=== PATIENT | male | born 1970 | race Caucasian/White ===

== ENCOUNTER 2016-07-09 08:39 | Emergency (ER) | payer OTHER ==
[~2016-07-09] VITALS: Ht 193 cm; Wt 120.0 kg
[2016-07-09 08:43] VITALS: Ht 193 cm; Wt 120.0 kg
[2016-07-09] MEDS ORDERED: SOD CHLORIDE 0.9% 1,000 ML IV STA (08:57)
[2016-07-09] MEDS ORDERED: HYDROmorphONE 1 MG/ML SYG IV STA ×2 (08:57→09:26)
[2016-07-09] MEDS ORDERED: ONDANSETRON 4 MG INJ IV STA (08:57)
[2016-07-09] MEDS ORDERED: SULFASALAZINE 500 MG TAB PO ONE (09:30)
[2016-07-09] MEDS ORDERED: predniSONE 20 MG TAB PO ONE (09:30)
[2016-07-09] MEDS ORDERED: SOD CHLORIDE 0.9% 1,000 ML IV ONE (09:30)
[2016-07-09 09:43] LABS: ADD SCAN DIFF NO
[2016-07-09 09:46] LABS: BASOPHILS % 0.2 % (0.0-2.0); EOSINOPHILS % 0.2 % (0.0-7.0); HEMATOCRIT 45.7 % (42.0-52.0); LYMPHOCYTES # 1.5 10^3/ul (0.8-2.9); LYMPHOCYTES % 23.8 % (15.0-51.0); MEAN CORPUSCULAR HEMOGLOBIN 30.4 pg (29.0-33.0); MEAN CORPUSCULAR HGB CONC 32.8 g/dl (32.0-37.0); MEAN CORPUSCULAR VOLUME 92.5 fl (82.0-101.0); MEAN PLATELET VOLUME 9.7 fl (7.4-10.4); MONOCYTE # 0.4 10^3/ul (0.3-0.9); MONOCYTES % 6.9 % (0.0-11.0); NEUTROPHIL # 4.3 10^3/ul (1.6-7.5); NEUTROPHILS % 68.6 % (39.0-77.0); PLATELET COUNT 150 10^3/UL (140-415); RED BLOOD COUNT 4.94 10^6/ul (4.70-6.10); RED CELL DISTRIBUTION WIDTH 13.1 % (11.5-14.5); WHITE BLOOD COUNT 6.2 10^3/ul (4.8-10.8)
[2016-07-09 10:02] LABS: ALBUMIN 4.7 g/dl (3.3-4.9); ALBUMIN/GLOBULIN RATIO 1.34; CALCIUM 9.5 mg/dl (8.4-10.2); CREATININE 0.98 mg/dl (0.61-1.24); POTASSIUM 3.6 mmol/L (3.5-5.1); TOTAL PROTEIN 8.2 g/dl (6.1-8.1)
[2016-07-09 10:17] LABS: INR 0.83; PROTIME 11.4 Sec (12.2-14.2); PT RATIO 0.9
[2016-07-09] MEDS ORDERED: HYDROmorphONE 2 MG/ML SYG IV STA (10:24)
[2016-07-09] MEDS ORDERED: SOD CHLORIDE 0.9% 100 ML ONE (10:25)
[2016-07-09] MEDS ORDERED: IOHEXOL 300MG/ML 150 ML BTL ONE (10:25)
--- NOTE | 2016-07-09 11:14 | RADRPT ---
PROCEDURE: CT Abdomen and Pelvis with contrast. CLINICAL INDICATION: Abdominal pain ; crohn's disease TECHNIQUE: CT scan of the abdomen and pelvis with contrast was performed on a multidetector high-r esolution CT scanner. Coronal and sagittal reformatted images were obtained from the axial source im ages. Images were reviewed on a high-resolution PACS workstation. 80 cc of Isovue 300 iodinated cont rast was administered intravenously without reported complication. The total exam CTDI equals 17 mG y and the total exam DLP equals 1044 mGy-cm. One or more of the following dose reduction techniques were used: Automated exposure control, Adjustment of the mA and/or kV according to patient size, an d/or use of iterative reconstruction technique. COMPARISON: None. FINDINGS: The lung bases are clear. The liver, pancreas, spleen, and adrenals are grossly unremarkable. No focal pericholecystic inflammatory changes. No hydronephrosis. No obstructing renal stone. No bowel obstruction. Surgical changes to the right colon are seen suggestive of prior appendectomy. No significant retroperitoneal lymphadenopathy, ascites or evidence of pneumoperitoneum. No rim-enhancing intra-abdominal fluid collection. IMPRESSION: No acute intra-abdominal process identified. No evidence of bowel obstruction or obstructing renal stone. No intra-abdominal abscess. Surgical changes to the right colon are seen suggestive of prior appendectomy. RPTAT: AA .Liam Stacy MD, MD Date Time Electronically viewed and signed by .Liam Stacy MD, on 07/09/2016 11:13 .T/
[2016-07-09 11:22] VITALS: BP 142/80; PULSE 56; RESP 20; TEMP 98.3
[2016-07-09] MEDS ORDERED: IBUP-1542 PO (11:24)
--- NOTE | 2016-07-09 12:26 | ERD ---
ER Documentation Chief Complaint Date/Time DATE: 07/09/16 TIME: 12:04 Chief Complaint RIGHT LOWER ABDOMINAL PAIN,VOMITING,HX OF CROHNS DSE HPI 46-year-old man states he has a history of Crohn's disease complaining of right lower quadrant severe abdominal pain and a few episodes of clear nonbloody nonbilious emesis beginning this morning. He states his last attack was about a month ago. He states he used to be controlled with medications including prednisone and opioid analgesics but he ran out because of changes to his health insurance and he has not seen his primary care physician or cardiovascular tech for over a month because of these changes. He states last time in the emergency department he required 4 mg of hydromorphone to control the pain, and states he has had previous CT scans and a colonoscopy but does not recall the results. Patient denies melena or blood per rectum, no fevers or chills, no chest pain or shortness of breath. Patient is status post appendectomy many years ago. He states he is allergic to Toradol ROS All systems reviewed and are negative except as per history of present illness. Medications Home Meds Active Scripts Ibuprofen* (Ibuprofen*) 600 Mg Tablet, 600 MG PO Q8 for PAIN AND/OR INFLAMMATION , #30 TAB Prov:RADHA BEAR MD 07/09/16 Allergies Allergies: Coded Allergies: ketorolac (Verified Allergy, Intermediate, RASH, 07/09/16) PMhx/Soc Possibly Crohn's disease, history of appendectomy History of Surgery: Yes (APPY) Anesthesia Reaction: No Hx Neurological Disorder: No Hx Respiratory Disorders: No Hx Cardiac Disorders: No Hx Psychiatric Problems: No Hx Miscellaneous Medical Probl: Yes (CROHNS) Hx Alcohol Use: No Hx Substance Use: No Hx Tobacco Use: No Smoking Status: Never smoker FmHx Family History: No diabetes Physical Exam Vitals Vital Signs Date Time Temp Pulse Resp B/P Pulse Ox O2 Delivery O2 Flow Rate FiO2 07/09/16 11:22 98.3 56 20 142/80 99 07/09/16 08:43 98.3 58 20 191/86 98 Physical Exam GENERAL: Well-developed, well-nourished, moderate discomfort, afebrile HEENT: Moist mucous membranes, pink conjunctiva, no cervical spine tenderness or step-off deformities, no goiter, no jaundice or icterus, extraocular movements intact without pain. No submandibular induration, and no pharyngeal erythema NEURO: Alert and oriented 3, cranial nerves II through XII intact bilaterally, pupils equal round reactive to light, no focal deficits or facial asymmetry, sensation intact distally Strength 5/5 in upper and lower extremities bilaterally CARDIAC: Regular rate and rhythm, no murmurs rubs or gallops LUNGS: Clear bilaterally no wheezing crackles or stridor ABDOMEN: Soft nontender, no guarding, no rigidity, no rebound, no psoas sign no obturator sign. Normoactive bowel sounds SKIN: Warm and dry to touch, no abrasions, contusions, or hematomas, no lacerations, no ecchymosis, no target lesions, and without ulcers EXTREMITIES: No clubbing cyanosis or edema, calves are bilaterally symmetrical, no Homans sign, no popliteal cord sign. Distal pulses equal and bilateral PSYCH: Normal affect without agitation or irritability Result Diagram: 07/09/1615 07/09/1615 Results 24 hrs Laboratory Tests Test 07/09/16 09:15 White Blood Count 6.210^3/ul Red Blood Count 4.9410^6/ul Hemoglobin 15.0g/dl Hematocrit 45.7% Mean Corpuscular Volume 92.5fl Mean Corpuscular Hemoglobin 30.4pg Mean Corpuscular Hemoglobin Concent 32.8g/dl Red Cell Distribution Width 13.1% Platelet Count 89609^3/UL Mean Platelet Volume 9.7fl Neutrophils % 68.6% Lymphocytes % 23.8% Monocytes % 6.9% Eosinophils % 0.2% Basophils % 0.2% Nucleated Red Blood Cells % 0.0/100WBC Neutrophils # 4.310^3/ul Lymphocytes # 1.510^3/ul Monocytes # 0.410^3/ul Eosinophils # 0.010^3/ul Basophils # 0.010^3/ul Nucleated Red Blood Cells # 0.010^3/ul Prothrombin Time 11.4Sec Prothrombin Time Ratio 0.9 INR International Normalized Ratio 0.83 Sodium Level 141mmol/L Potassium Level 3.6mmol/L Chloride Level 105mmol/L Carbon Dioxide Level 28mmol/L Anion Gap 12 Blood Urea Nitrogen 10mg/dl Creatinine 0.98mg/dl Glucose Level 145mg/dl Calcium Level 9.5mg/dl Total Bilirubin 1.0mg/dl Direct Bilirubin 0.00mg/dl Indirect Bilirubin 1.0mg/dl Aspartate Amino Transf (AST/SGOT) 44IU/L Alanine Aminotransferase (ALT/SGPT) 59IU/L Alkaline Phosphatase 78IU/L Total Protein 8.2g/dl Albumin 4.7g/dl Globulin 3.50g/dl Albumin/Globulin Ratio 1.34 Lipase 88U/L Current Medications Medications (Trade) Dose Ordered Sig/Dell Route PRN Reason Start Time Stop Time Status Last Admin Dose Admin Sodium Chloride (NS) 1,000 ml @ 1,000 mls/hr Q1H STAT IV 07/09/16 08:57 07/09/16 09:56 DC 07/09/16 09:51 Hydromorphone HCl (Dilaudid) 1 mg ONCE STAT IV 07/09/16 08:57 07/09/16 08:58 DC 07/09/16 09:24 Ondansetron HCl (Zofran Inj) 4 mg ONCE STAT IV 07/09/16 08:57 07/09/16 08:58 DC 07/09/16 09:25 Prednisone (Prednisone) 60 mg ONCE ONCE PO 07/09/16 09:30 07/09/16 09:31 DC 07/09/16 10:42 Sulfasalazine 1000 mg 1,000 mg ONCE ONCE PO 07/09/16 09:30 07/09/16 09:31 DC 07/09/16 10:58 Sodium Chloride (NS) 1,000 ml @ 1,000 mls/hr Q1H ONCE IV 07/09/16 09:30 07/09/16 10:29 DC 07/09/16 09:53 Hydromorphone HCl (Dilaudid) 1 mg ONCE STAT IV 07/09/16 09:26 07/09/16 09:27 DC 07/09/16 10:07 Hydromorphone HCl (Dilaudid) 2 mg ONCE STAT IV 07/09/16 10:24 07/09/16 10:25 DC 07/09/16 10:35 Iohexol 150 ml 150 ml STK-MED ONCE .ROUTE 07/09/16 10:25 07/09/16 10:26 DC 07/09/16 11:00 Sodium Chloride (NS) 100 ml @ ud STK-MED ONCE .ROUTE 07/09/16 10:25 07/09/16 10:26 DC 07/09/16 11:00 Procedures/MDM IV line was established patient was placed on monitoring and evaluation advisor rhythm strip revealed a sinus rhythm at about 80 bpm with upright P and T waves. Patient was afebrile. I administered 1 L normal saline intravenously, hydromorphone 1 mg IV 1, and Zofran 4 mg IV, patient stated immediately after medication administration that his pain did not resolve and that he required a total of 4 mg in 2 mg doses. About half an hour after the first dose I did give another dose of hydromorphone 1 mg IV, and an hour later ministered hydromorphone 2 mg IV for a total of 4 mg. I also initially treated him with sulfasalazine 1 g p.o. and prednisone 60 mg p.o. CBC and electrolytes are normal, liver function tests are normal. I recommended and would have preferred CT scan imaging with oral contrast although patient stated he was nauseous and could not tolerate that much oral contrast, and as acute mesenteric ischemia was still on the differential diagnosis given his pain out of proportion to examination I elected to proceed with CT scan of the abdomen pelvis using IV contrast. CT scan of abdomen and pelvis with IV contrast was performed and was completely normal. There was no bowel wall thickening, intraluminal air, mesenteric stranding, or lymphadenopathy found on CT scan, which would have been likely in a patient with a long history of Crohn's experiencing an acute severely symptomatic flare. Please refer to radiologist dictation for full report. Patient's vital signs remained normal throughout his stay in the emergency department, and abdominal examination was repeated by me after my first examination and prior to discharge. His belly remained soft he had no guarding , rigidity, or rebound on my examination. And patient looks well despite initial diaphoresis complaints of pain. This patient did exhibit many aspects of drug-seeking behavior and I cautioned him about the risks of opioids both in the chronic and acute setting. I suspect many aspects of his presentation was secondary to opioid withdrawal, and recommended he follow-up with his primary care physician, cardiovascular tech, and obtain a pain specialist consultation. These evaluations and consults can be performed as an outpatient. I deferred all opioid prescriptions and medications related to Crohn's therapy to his PMD. Differential diagnoses considered, included but not limited to acute coronary syndrome, mesenteric ischemia, inflammatory bowel disease, bowel perforation, pulmonary embolism, aortic dissection, abdominal aortic aneurysm, sepsis, stroke , meningitis, encephalitis, pneumonia, appendicitis, cholecystitis, bowel obstruction, pyelonephritis, nephrolithiasis, cystitis, as well as metabolic, hematologic, and electrolyte abnormalities. As well as abscess, cellulitis, fractures, and dislocations. Patient feels much better at this time, and vital signs are normal, symptoms have improved. I did give strict instructions to return to the ED if symptoms continue or worsen, patient will otherwise follow-up with primary care physician. Patient understood instructions and agreed to plan. Departure Diagnosis: Primary Impression: Abdominal pain Abdominal location: right lower quadrant Qualified Code: R10.31 - Right lower quadrant abdominal pain Additional Impression: Withdrawal from opioids Condition: Good Patient Instructions: Abdominal Pain, Unkown Cause, (Male) RADHA BEAR MD Jul 09, 2016 12:21
== END 2016-07-09 11:45 | disposition home or self-care (01) ==
LOC: E/R 08:39
DX: R10.31 Right lower quadrant pain (principal); F11.23 Opioid dependence with withdrawal; R40.2142 Coma scale, eyes open, spontaneous, at arrival to emergency department; R40.2252 Coma scale, best verbal response, oriented, at arrival to emergency department; R40.2362 Coma scale, best motor response, obeys commands, at arrival to emergency department; R11.10 Vomiting, unspecified
CPT/HCPCS: 36415; 74177; 80053; 83690; 85025; 85610; 96361; 96374; 96375; 96376; J1170; J2405; J7030; J7512; Q9967; Z7502; Z7610

== ENCOUNTER 2016-07-11 05:55 | Observation (INO) | payer OTHER ==
[~2016-07-11] VITALS: Ht 193 cm; Wt 105.0 kg
[~2016-07-11 05:55] MED LIST: IBUP-1542 PO
[2016-07-11] MEDS ORDERED: SOD CHLORIDE 0.9% 1,000 ML IV STA (06:45)
[2016-07-11] MEDS ORDERED: ONDANSETRON 4 MG INJ IV STA (06:45)
[2016-07-11] MEDS ORDERED: HYDROmorphONE 1 MG/ML SYG IV STA ×4 (06:45→08:14)
[2016-07-11 06:52] LABS: ADD SCAN DIFF NO
[2016-07-11 06:53] LABS: BASOPHILS % 0.2 % (0.0-2.0); EOSINOPHILS % 0.6 % (0.0-7.0); HEMOGLOBIN 14.9 g/dl (14.0-18.0); LYMPHOCYTES # 1.9 10^3/ul (0.8-2.9); LYMPHOCYTES % 34.7 % (15.0-51.0); MEAN CORPUSCULAR HEMOGLOBIN 30.8 pg (29.0-33.0); MEAN CORPUSCULAR HGB CONC 33.1 g/dl (32.0-37.0); MEAN CORPUSCULAR VOLUME 93.2 fl (82.0-101.0); MEAN PLATELET VOLUME 10.3 fl (7.4-10.4); MONOCYTE # 0.4 10^3/ul (0.3-0.9); MONOCYTES % 6.9 % (0.0-11.0); NEUTROPHIL # 3.1 10^3/ul (1.6-7.5); NEUTROPHILS % 57.4 % (39.0-77.0); PLATELET COUNT 135 10^3/UL (140-415); RED BLOOD COUNT 4.83 10^6/ul (4.70-6.10); RED CELL DISTRIBUTION WIDTH 13.2 % (11.5-14.5); WHITE BLOOD COUNT 5.3 10^3/ul (4.8-10.8)
[2016-07-11 07:11] LABS: ALBUMIN 4.5 g/dl (3.3-4.9)
[2016-07-11 07:12] LABS: POTASSIUM 3.5 mmol/L (3.5-5.1)
[2016-07-11 07:14] LABS: ALBUMIN/GLOBULIN RATIO 1.4; BILIRUBIN,INDIRECT 1.1 mg/dl (0-1.1); BILIRUBIN,TOTAL 1.1 mg/dl (0.2-1.3); CALCIUM 9.5 mg/dl (8.4-10.2); CREATININE 1.02 mg/dl (0.61-1.24); TOTAL PROTEIN 7.7 g/dl (6.1-8.1)
[2016-07-11] MEDS ORDERED: ONDANSETRON 4 MG INJ IV PRN ×2 (08:30→09:30)
[2016-07-11] MEDS ORDERED: ACETAMINOPHEN 325 MG TAB PO PRN ×2 (08:30→09:30)
--- NOTE | 2016-07-11 08:34 | ERA ---
ER Documentation Chief Complaint Date/Time DATE: 07/11/16 TIME: 08:27 Chief Complaint pt c/o rlq pain x2 hours with n/v HPI 46-year-old male with a history of Crohn's disease currently not on medication complaining of right lower quadrant pain since this morning with associated nausea and vomiting. Vomiting is nonbloody and nonbilious. Bowel movement was this morning and it was watery, nonbloody. He was here about 2 days ago with the same symptoms. He had a CT of the abdomen and pelvis which was normal. His pain was controlled and he was discharged. He states that in the past he has been on Humira and prednisone, but because of insurance changes, all his medications were stopped. She does not have a PCP or a GI doctor at this time. He is complaining of right lower quadrant pain radiating all over his abdomen. He describes it as a sharp, stabbing pain. 10 out of 10. Nothing seems to make it better or worse. He states that he needs 2 mg of Dilaudid to help with the pain. ROS All systems reviewed and are negative except as per history of present illness. Medications Home Meds Discontinued Scripts Ibuprofen* (Ibuprofen*) 600 Mg Tablet, 600 MG PO Q8 for PAIN AND/OR INFLAMMATION , #30 TAB Prov:RADHA BEAR MD 07/09/16 Allergies Allergies: Coded Allergies: ketorolac (Verified Allergy, Intermediate, RASH, 07/11/16) PMhx/Soc History of Surgery: Yes (APPY) Anesthesia Reaction: No Hx Neurological Disorder: No Hx Respiratory Disorders: No Hx Cardiac Disorders: No Hx Psychiatric Problems: No Hx Miscellaneous Medical Probl: Yes (CROHNS) Hx Alcohol Use: No Hx Substance Use: No Hx Tobacco Use: No Smoking Status: Current some day smoker FmHx Family History: No diabetes Physical Exam Vitals Vital Signs Date Time Temp Pulse Resp B/P Pulse Ox O2 Delivery O2 Flow Rate FiO2 07/11/16 05:59 96.7 50 22 187/95 100 Physical Exam Const: Diaphoretic, in severe distress secondary to pain, writhing around in bed , Find comfortable position Head: Atraumatic Eyes: Normal Conjunctiva ENT: Normal External Ears, Nose and Mouth. Neck: Full range of motion..~ No meningismus. Resp: Clear to auscultation bilaterally Cardio: Regular rate and rhythm, no murmurs Abd: Soft, non tender, non distended. No peritoneal signs. No rebound or guarding. Normal bowel sounds Skin: No petechiae or rashes Back: No midline or flank tenderness Ext: No cyanosis, or edema Neur: Awake and alert Psych: Anxious Result Diagram: 07/11/16 0637 07/11/16 0637 Results 24 hrs Laboratory Tests Test 07/11/16 06:37 White Blood Count 5.310^3/ul Red Blood Count 4.8310^6/ul Hemoglobin 14.9g/dl Hematocrit 45.0% Mean Corpuscular Volume 93.2fl Mean Corpuscular Hemoglobin 30.8pg Mean Corpuscular Hemoglobin Concent 33.1g/dl Red Cell Distribution Width 13.2% Platelet Count 27584^3/UL Mean Platelet Volume 10.3fl Neutrophils % 57.4% Lymphocytes % 34.7% Monocytes % 6.9% Eosinophils % 0.6% Basophils % 0.2% Nucleated Red Blood Cells % 0.0/100WBC Neutrophils # 3.110^3/ul Lymphocytes # 1.910^3/ul Monocytes # 0.410^3/ul Eosinophils # 0.010^3/ul Basophils # 0.010^3/ul Nucleated Red Blood Cells # 0.010^3/ul Sodium Level 141mmol/L Potassium Level 3.5mmol/L Chloride Level 104mmol/L Carbon Dioxide Level 26mmol/L Anion Gap 15 Blood Urea Nitrogen 11mg/dl Creatinine 1.02mg/dl Glucose Level 125mg/dl Calcium Level 9.5mg/dl Total Bilirubin 1.1mg/dl Direct Bilirubin 0.00mg/dl Indirect Bilirubin 1.1mg/dl Aspartate Amino Transf (AST/SGOT) 31IU/L Alanine Aminotransferase (ALT/SGPT) 48IU/L Alkaline Phosphatase 67IU/L Total Protein 7.7g/dl Albumin 4.5g/dl Globulin 3.20g/dl Albumin/Globulin Ratio 1.40 Current Medications Medications (Trade) Dose Ordered Sig/Dell Route PRN Reason Start Time Stop Time Status Last Admin Dose Admin Sodium Chloride (NS) 1,000 ml @ 1,000 mls/hr Q1H STAT IV 07/11/16 06:45 07/11/16 07:44 DC 07/11/16 06:55 Hydromorphone HCl (Dilaudid) 1 mg ONCE STAT IV 07/11/16 06:45 07/11/16 06:47 DC 07/11/16 06:56 Ondansetron HCl (Zofran Inj) 4 mg ONCE STAT IV 07/11/16 06:45 07/11/16 06:47 DC 07/11/16 06:56 Hydromorphone HCl (Dilaudid) 1 mg ONCE STAT IV 07/11/16 06:59 07/11/16 07:00 DC 07/11/16 07:04 Hydromorphone HCl (Dilaudid) 1 mg ONCE STAT IV 07/11/16 07:23 07/11/16 07:24 DC 07/11/16 07:43 Hydromorphone HCl (Dilaudid) 1 mg ONCE STAT IV 07/11/16 08:14 07/11/16 08:15 DC 07/11/16 08:23 Ondansetron HCl (Zofran Inj) 4 mg BRIDGE ORDER PRN IV NAUSEA AND/OR VOMITING 07/11/16 08:30 07/12/16 08:29 Acetaminophen (Tylenol Tab) 650 mg ER BRIDGE PRN PO MILD PAIN/FEVER 07/11/16 08:30 07/12/16 08:29 Procedures/MDM EMERGENT LABS AND DIAGNOSTIC STUDIES: Lab Results above were reviewed and interpreted by me. CBC and CMP are within normal limits Radiology Results as interpreted by Radiology below were reviewed by Sarai Julian MD: CT abdomen and pelvis with IV contrast: Initial Nursing notes reviewed. Previous Medical Records requested via the Electronic Health Record. EMERGENCY DEPARTMENT COURSE / MEDICAL DECISION MAKING: The patient is presenting with severe abdominal pain, which he states is likely secondary to Crohn's disease. Vitals are stable and he is afebrile. Labs are within normal limits. I have a low suspicion for perforated bowel, mesenteric ischemia, bowel obstruction. I cannot rule out colitis or diverticulitis. Given that his CT 2 days ago was normal, I have a low suspicion that today his CT findings will be significantly different. However given the severity of this pain, a CT abdomen and pelvis with IV contrast was ordered to further evaluate for any surgical emergency. I pulled up his cures report and it seems the last time he had narcotic pain medication filled was in April 2016. I have a lower suspicion for renal colic. Patient was requiring multiple doses of IV Dilaudid with poor control of his pain. He was given Zofran for vomiting which helped. The patient has poor follow-up, I don't believe he is stable for discharge at this time and will need further workup and management of his pain. Accepting Care Team: Current data and ongoing care discussed. Time: Time of admission Primary Provider: Duy Consulting: none Outstanding Data: CT abdomen and pelvis with IV contrast Departure Diagnosis: Primary Impression: Intractable right lower quadrant abdominal pain Additional Impressions: Nausea and vomiting Qualified Code: R11.2 - Non-intractable vomiting with nausea, unspecified vomiting type History of Crohn's disease Condition: EUGENIA Low MD Jul 11, 2016 08:34
[2016-07-11] MEDS ORDERED: DEXTROSE 5%-0.45% NACL 1,000 ML IV SCH (09:16)
--- NOTE | 2016-07-11 09:20 | RADRPT ---
PROCEDURE: XR Abdomen 1 vw. CLINICAL INDICATION: Abdominal pain TECHNIQUE: AP view of the abdomen COMPARISON: None. FINDINGS: There are surgical clips in the right mid abdomen. No organomegaly is identified. There is a nonspecific bowel gas pattern. There is no evidence of b owel obstruction. No free air is identified. No calculi are identified. The axial skeleton is unre markable. IMPRESSION: Unremarkable examination. RPTAT: HGDB .Clive Briseno MD, MD Date Time Electronically viewed and signed by .Clive Briseno MD, on 07/11/2016 09:19 .B/
[2016-07-11] MEDS ORDERED: SOD CHLORIDE 0.9% 100 ML ONE (09:23)
[2016-07-11] MEDS ORDERED: IOHEXOL 300MG/ML 30 ML BTL ONE (09:23)
[2016-07-11] MEDS ORDERED: ALBUTEROL/IPRATROPIUM (NEB) 3 ML AMP HHN PRN (09:30)
[2016-07-11] MEDS ORDERED: BISACODYL (EC) 5 MG TAB PO PRN (09:30)
[2016-07-11] MEDS ORDERED: NACL 0.9% 3 ML SYG IV SCH (09:30)
[2016-07-11] MEDS ORDERED: HYDROmorphONE 2 MG/ML SYG IV PRN (09:30)
[2016-07-11] MEDS ORDERED: DOCUSATE SODIUM 100 MG CAP PO PRN (09:30)
[2016-07-11] MEDS ORDERED: NA PHOSPHATE/BIPHOS 133 ML ENEMA PR PRN (09:30)
[2016-07-11] MEDS ORDERED: AMLODIPINE 5 MG TAB PO SCH (09:30)
[2016-07-11] MEDS ORDERED: MAGNESIUM HYDROXIDE 30ML CUP PO PRN (09:30)
[2016-07-11] MEDS ORDERED: BISACODYL 10 MG SUPP PR PRN (09:30)
[2016-07-11] MEDS ORDERED: HYDROCODONE/APAP (5/325) TAB PO PRN (09:30)
--- NOTE | 2016-07-11 09:49 | RADRPT ---
PROCEDURE: CT Abdomen and Pelvis with contrast. CLINICAL INDICATION: Abdominal pain, Crohn disease TECHNIQUE: CT scan of the abdomen and pelvis with contrast was performed utilizing axial tomograph ic images from the domes the diaphragm to the symphysis pubis. The patient was scanned post uncomp licated intravenous administration of 100 cc of Omnipaque-300. Coronal and sagittal reformatted anh ges were obtained from the axial source images. Images were reviewed on a high-resolution PACS works tation. One or more of the following dose reduction techniques were used: Automated exposure control, Adjust ment of the mA and/or kV according to patient size, and/or Use of iterative reconstruction technique . The total exam CTDI equals 16.57 mGy and the total exam DLP equals 1031.69 mGy-cm. COMPARISON: CT abdomen and pelvis dated 07/09/2016 FINDINGS: The lung bases are clear . The liver is normal in size and contour. No focal intrahepatic masses are identified. There is no intra or extrahepatic biliary dilatation. The gallbladder is unremark able by CT criteria. The spleen, pancreas, and adrenal glands are unremarkable. The kidneys are symmetric in size and demonstrate normal enhancement. No hydronephrosis or hydroure ter is identified. No renal parenchymal mass is identified. The urinary bladder is unremarkable. The bowel demonstrates normal course and caliber. There is no evidence of bowel obstruction. There are postsurgical changes from prior small bowel resection. The appendix is not visualized. There is mild focal narrowing of the distal sigmoid colon near the rectosigmoid junction. There is mild m ucosal thickening of the rectum. Trace free fluid is seen within the pelvis. No intraperitoneal fr ee air or abscess identified. No retroperitoneal, mesenteric, or inguinal adenopathy is identified. The abdominal aorta and major branching vessels are normal in caliber. The osseous structures demon strate anterior fusion of the right sacroiliac joint. No significant subcutaneous soft tissue abno rmality is identified. IMPRESSION: 1. Mild mucosal thickening of the rectum with trace free fluid in the pelvis, which is a new findin g when compared to the prior examination. 2. Mild focal narrowing of the distal sigmoid colon near the rectosigmoid junction, may reflect nor mal peristaltic changes, although is persistent when compared to the prior examination. In the sett ing of Crohn disease, stricture is not excluded. There is no evidence of obstruction. 3. Postsurgical changes from small bowel resection. RPTAT: HH .Keren Wells MD, MD Date Time Electronically viewed and signed by .Keren Wells MD, MD on 07/11/2016 09:49 .G/
--- NOTE | 2016-07-11 09:50 | HP ---
DATE OF ADMISSION: 07/11/2016 CHIEF COMPLAINT: Right lower quadrant abdominal pain, intractable abdominal pain, possible Crohn's flare. HISTORY OF PRESENT ILLNESS: This is a 46-year-old who gives a past medical history of Crohn's disea se, but currently he has not been on any medications at this point. He gives a history of Crohn's d isease. Previously he was treated with Humira and prednisone, but due to the insurance reasons the patient is currently not on any medications for Crohn's. He was recently seen in the emergency room on 06/08/2016, at that time he had a CT abdomen and pelvis with contrast done which shows no acute intraabdominal process with surgical changes to the right colon for which history of prior appendect cherry. No intraabdominal abscess. The patient was discharged home with pain medication. He presente d back to the [facility] ER with a complaint of right lower quadrant abdominal pain associa juice with some nausea, inability to tolerate p.o. He had a workup done in the emergency room today, which revealed the white count has been normal. His electrolytes have been normal. LFTs are normal . He is getting admitted for pain control due to the intractable abdominal pain and possible Crohn' s flare workup. GI has been consulted. REVIEW OF SYSTEMS: Positive for right lower quadrant abdominal pain, nausea, vomiting. Other revie w of systems has been obtained and is negative except what is mentioned in the history of present il lness. PAST MEDICAL HISTORY: History of Crohn's disease previously was treated with Humira and prednisone as per the patient, but currently he is not on any medications due to the insurance reason. PAST SURGICAL HISTORY: History of appendectomy. SOCIAL HISTORY: No smoking, alcohol or recreational drug use. FAMILY HISTORY: No family history of inflammatory bowel disease. No family history of coronary art marcus disease/CKD/stroke. PHYSICAL EXAMINATION: VITAL SIGNS: Temperature 96.7, heart rate 50, respiration 22, blood pressure 187/95, saturation is 100% on room air. GENERAL: Awake, alert, in no distress. HEENT: Normal. Oropharynx clear. NECK: Supple, no JVD, no lymphadenopathy. LUNGS: Clear to auscultation. No crackles, no wheezes. HEART: S1, S2, with regular rhythm, no murmur. ABDOMEN: Soft. Mild tender to palpation in right lower quadrant. No rebound, no guarding. Bowel sounds are present. EXTREMITIES: No clubbing, cyanosis, edema. NEUROLOGICAL: Nonfocal, intact. PSYCHIATRIC: Appropriate affect and mood. SKIN: No rash. GENITOURINARY: The patient deferred examination. LABORATORY DATA/DIAGNOSTIC IMAGIN. Sodium 141, potassium 3.5, chloride 104, bicarbonate 26, BUN 11, creatinine 1.02, glucose 125, c alcium 9.5. LFTs are normal. Albumin 4.5. WBC 5.3, hemoglobin 14.9, platelet count is 135. 2. The patient had a CT abdomen and pelvis with contrast done on 07/09/2016 which revealed no acute intra-abdominal process identified, no evidence of bowel obstruction or obstructing renal stone, no intraabdominal abscess, surgical changes to the right colon suggestive of a prior appendectomy. IMPRESSION: This is a 46-year-old male with: 1. Intractable abdominal pain. 2. Rule out possible Crohn's flare since the patient gives a history of Crohn's disease and he also gives a history of treatment with Humira and prednisone prior. Currently, he is not on any medicat ions due to the insurance reasons as per the patient. 3. History of appendectomy. 4. Accelerated hypertension. PLAN: 1. The patient currently seen in the emergency room. I will admit him to the med/surg floor. The G I consult, Dr. Jimenez, has been consulted to evaluate the patient. The patient's LFTs are currently normal. I will start him on IV fluids, D5 half NS to run at 80 mL per hour. 2. Pain control with Tylenol, [place] and Dilaudid IV. 3. Pepcid for GI prophylaxis, SCDs for DVT prophylaxis 4. I will start the patient on amlodipine 5 mg p.o. daily and IV hydralazine p.r.n. systolic blood pressure more than 160. Dictated By: OLEG ACUNA MD, KP/TANA Conf#: [id number] DID#: [id number]
[2016-07-11 10:08] VITALS: PULSE 58; TEMP 98.3
[2016-07-11 10:45] VITALS: Ht 193 cm; Wt 105.0 kg
[2016-07-11 10:52] VITALS: BP 143/85; RESP 20
[2016-07-11] MEDS ORDERED: FAMOTIDINE 20 MG INJ IV SCH (21:00)
--- NOTE | 2016-07-12 09:38 | DS ---
DATE OF ADMISSION: 07/11/2016 DATE OF DISCHARGE: 07/11/2016 Please note that the patient signed out against medical advice on 07/11/2016. FINAL DISCHARGE DIAGNOSES: 1. Acute intractable abdominal pain, possibly rule out Crohn's flare. 2. Accelerated hypertension. 3. History of appendectomy. 4. Dilaudid seeking behavior. CONSULTATIONS DONE DURING THIS HOSPITALIZATION: The patient was called in for a GI consultation, bu t he signed out against medical advice before evaluation. HOSPITAL COURSE: This is a 46-year-old male who gives a past medical history of Crohn disease diagn osed by colonoscopy as per the patient. It was done in [place] approximately 1-1/2 to 2 years befo re, as per the patient. He presented to the [facility] Emergency Room with right lower quadrant abdominal pain associated with some nausea. The patient has had a normal lab tests i ncluding the WBC count and LFTs were normal. His albumin was also normal. He had a CT abdomen and pelvis done approximately 2 days prior to the admission in the [facility] ER which shows no acute findings. The patient has no evidence of any Crohn's disease. On the CT scan he gets admitt ed for intractable abdominal pain controlled with IV fluid hydration. The patient was Dilaudid seek ing and has been constantly asking for IV Dilaudid. He was started on Dilaudid 2 mg IV q.4h, but he was asking more than that. After having a discussion with him the decision was made not to increas e the pain medication until a GI consultation and evaluation. The patient was waiting to have a GI evaluation, but he signed out against medical advice on 07/11/2016. He has been explained about the risks and complications of signing out against medical advice including possible . He underst ood and verbalized back understanding to me and nursing staff. DISPOSITION: Please note that the patient signed out against medical advice. DISCHARGE MEDICATIONS: He did not wait for any prescriptions to be given at the time of discharge. Dictated By: OLEG ACUNA MD, KP/TANA Conf#: [id number] DID#: [id number]
== END 2016-07-11 12:05 | disposition left against medical advice (07) ==
LOC: E/R 05:55 → MS2 08:22
PROVIDERS: ADMIT Family Medicine; ATTEND Family Medicine
DX: R10.31 Right lower quadrant pain (principal); I10 Essential (primary) hypertension; F17.200 Nicotine dependence, unspecified, uncomplicated; Z76.5 Malingerer [conscious simulation]; Z87.19 Personal history of other diseases of the digestive system; Z88.8 Allergy status to other drugs, medicaments and biological substances
CPT/HCPCS: 36415; 74000; 74177; 80053; 85025; 96374; 96375; 96376; J1170; J2405; J7030; J7042; Q9967; Z7500; Z7502; Z7610; G0378

== ENCOUNTER 2016-11-28 07:03 | Emergency (ER) | payer OTHER ==
[~2016-11-28] VITALS: Ht 193 cm; Wt 104.0 kg
[2016-11-28 07:06] VITALS: Ht 193 cm; Wt 104.0 kg
[2016-11-28] MEDS ORDERED: SOD CHLORIDE 0.9% 1,000 ML IV STA (07:23)
[2016-11-28] MEDS ORDERED: ONDANSETRON 4 MG INJ IV STA (07:23)
[2016-11-28] MEDS ORDERED: HYDROmorphONE 1 MG/ML SYG IV STA ×2 (07:23→07:38)
[2016-11-28 07:59] LABS: ALBUMIN 4.9 g/dl (3.3-4.9); ALBUMIN/GLOBULIN RATIO 1.22; BILIRUBIN,INDIRECT 1.5 mg/dl (0-1.1); BILIRUBIN,TOTAL 1.5 mg/dl (0.2-1.3); CALCIUM 9.9 mg/dl (8.4-10.2); CREATININE 0.99 mg/dl (0.61-1.24); TOTAL PROTEIN 8.9 g/dl (6.1-8.1)
[2016-11-28] MEDS ORDERED: HALOPERIDOL 5 MG INJ IV ONE (08:30)
[2016-11-28] MEDS ORDERED: HYDR-902 PO (08:44)
--- NOTE | 2016-11-28 08:56 | ERD ---
ER Documentation Chief Complaint Date/Time DATE: 11/28/16 TIME: 08:53 Chief Complaint SEVERE ABD PAIN WITH N/V FLARE UP OF CROHNS DISEASE. SINCE 2 HRS GRAPHICS COORDINATOR, HPI Patient is a 46-year-old male with Crohn's disease who presents with "Crohn's pain". He has right lower quadrant abdominal pain which started 3 hours ago. He said that it started after a bowel movement. He has a history of the same and says that he has been having these exacerbations since he was 32 years old. He says "I need 2 mg of Dilaudid multiple times". His pain is sharp and constant. He has had his appendix removed. Upon review of old medical records this is the patient's third visit to the ER and review of the emergency department information exchange system shows visits to 3 separate emergency departments. He left AGAINST MEDICAL ADVICE in June and the notes report "Dilaudid seeking behavior". ROS All systems reviewed and are negative except as per history of present illness. Medications Home Meds Active Scripts Hydrocodone/Acetaminophen ([place] 10-325 Tablet) 1 Each Tablet, 1 TAB PO Q6H Y for PAIN, #7 TAB Prov:DAVID LEAVITT MD 11/28/16 Allergies Allergies: Coded Allergies: ketorolac (Verified Allergy, Intermediate, RASH, 07/11/16) PMhx/Soc History of Surgery: Yes (appendectomy) Anesthesia Reaction: No Hx Neurological Disorder: No Hx Respiratory Disorders: No Hx Cardiac Disorders: No Hx Psychiatric Problems: No Hx Miscellaneous Medical Probl: Yes (CHRON'S ) Hx Alcohol Use: No Hx Substance Use: No Hx Tobacco Use: Yes Smoking Status: Never smoker FmHx Family History: diabetes Physical Exam Vitals Vital Signs Date Time Temp Pulse Resp B/P Pulse Ox O2 Delivery O2 Flow Rate FiO2 11/28/16 07:06 98.6 51 22 152/90 99 Physical Exam Const: Moderate distress secondary to pain Head: Atraumatic Eyes: Normal Conjunctiva ENT: Normal External Ears, Nose and Mouth. Neck: Full range of motion..~ No meningismus. Resp: Clear to auscultation bilaterally Cardio: Regular rate and rhythm, no murmurs Abd: Diffuse abdominal pain without rebound or guarding Skin: No petechiae or rashes Back: No midline or flank tenderness Ext: No cyanosis, or edema Neur: Awake and alert Psych: Normal Mood and Affect Result Diagram: 11/28/16 0720 Results 24 hrs Laboratory Tests Test 11/28/16 07:20 White Blood Count Pending Red Blood Count Pending Hemoglobin Pending Hematocrit Pending Mean Corpuscular Volume Pending Mean Corpuscular Hemoglobin Pending Mean Corpuscular Hemoglobin Concent Pending Red Cell Distribution Width Pending Platelet Count Pending Mean Platelet Volume Pending Sodium Level 142mmol/L Potassium Level 5.0mmol/L Chloride Level 106mmol/L Carbon Dioxide Level 24mmol/L Anion Gap 17 Blood Urea Nitrogen 9mg/dl Creatinine 0.99mg/dl Glucose Level 126mg/dl Calcium Level 9.9mg/dl Total Bilirubin 1.5mg/dl Direct Bilirubin 0.00mg/dl Indirect Bilirubin 1.5mg/dl Aspartate Amino Transf (AST/SGOT) 57IU/L Alanine Aminotransferase (ALT/SGPT) 36IU/L Alkaline Phosphatase 64IU/L Total Protein 8.9g/dl Albumin 4.9g/dl Globulin 4.00g/dl Albumin/Globulin Ratio 1.22 Lipase 77U/L Current Medications Medications (Trade) Dose Ordered Sig/Dell Route PRN Reason Start Time Stop Time Status Last Admin Dose Admin Sodium Chloride (NS) 1,000 ml @ 1,000 mls/hr Q1H STAT IV 11/28/16 07:23 11/28/16 08:22 DC 11/28/16 07:37 Hydromorphone HCl (Dilaudid) 1 mg ONCE STAT IV 11/28/16 07:23 11/28/16 07:24 DC 11/28/16 07:36 Ondansetron HCl (Zofran Inj) 4 mg ONCE STAT IV 11/28/16 07:23 11/28/16 07:24 DC 11/28/16 07:36 Hydromorphone HCl (Dilaudid) 1 mg ONCE STAT IV 11/28/16 07:38 11/28/16 07:39 DC 11/28/16 07:52 Haloperidol (Haldol) 2 mg ONCE ONCE IV 11/28/16 08:30 11/28/16 08:31 DC 11/28/16 08:19 Procedures/MDM Smoking Cessation Therapy: Pt. was lectured for greater than 3 minutes on the health risks of continued smoking and the benefits of cessation. Patient is a 46-year-old male with Crohn's disease who presents with acute abdominal pain. He has a history of the same and has had his appendix removed. His BMP is normal and LFTs were only slightly elevated. His CBC was hemolyzed but he refused a another blood draw. He was requesting multiple doses of Dilaudid however his oxygen saturation had dropped after the first Dilaudid that was given to him and I was concerned about giving any further doses. I also believe there may be an element of drug-seeking behavior here. Therefore I tried Haldol 2 mg IV which worked incredibly well. The patient is now calm and in no acute distress. At this point I doubt appendicitis, cholecystitis, pancreatitis, or bowel obstruction. I think the risk of doing a CT scan of the abdomen pelvis outweigh the benefits. The patient will be given a prescription for short course of [place] and referral will be given to Dr. Ren from pain management. I will also refer him to our pain management committee here at the hospital so that a care plan can be developed for him in the future. Departure Diagnosis: Primary Impression: Chronic pain Chronic pain type: chronic pain syndrome Qualified Code: G89.4 - Chronic pain syndrome Additional Impression: Abdominal pain Abdominal location: generalized Qualified Code: R10.84 - Generalized abdominal pain Condition: Fair Patient Instructions: Abdominal Pain, Chronic Pain Referrals: BELA REN Additional Instructions: SPECIALIST: YOU HAVE A MEDICAL CONDITION WHICH REQUIRES YOU TO SEE A SPECIALIST WITHIN THE NEXT 1-2 DAYS. PLEASE FOLLOW UP WITH YOUR PRIMARY PHYSICIAN FOR REFFERAL.IF YOU DO NOT HAVE A PRIMARY CARE PHYSICIAN AND/OR YOU CAN NOT AFFORD TO SEE A PHYSICIAN THE FOLLOWING RESOURCES HAVE BEEN SUPPLIED TO YOU. IT IS YOUR RESPONSIBILITY TO BE SEEN BY THE SPECIALIST DAVID LEAVITT MD Nov 28, 2016 08:56
[2016-11-28 09:15] VITALS: BP 122/75; PULSE 82; RESP 18
== END 2016-11-28 09:15 | disposition home or self-care (01) ==
LOC: E/R 07:03
DX: G89.4 Chronic pain syndrome (principal); R10.84 Generalized abdominal pain; R11.2 Nausea with vomiting, unspecified; Z87.891 Personal history of nicotine dependence
CPT/HCPCS: 36415; 80053; 83690; 96374; 96375; J1170; J1630; J2405; J7030; Z7502

== ENCOUNTER 2017-05-06 07:06 | Emergency (ER) | END 2017-05-06 09:22 | disposition home or self-care (01) ==